=== PATIENT | female | born 1945 | race African-American/Black ===

== ENCOUNTER 2024-05-12 17:30 | Emergency (ER) | payer BC, MEDICAID ==
[~2024-05-12] VITALS: Ht 165.1 cm; Wt 63.5 kg
[2024-05-12 17:47] VITALS: BP 172/97; PULSE 90; RESP 16; TEMP 97.9; O2SAT 100
== END 2024-05-12 18:10 | disposition home or self-care (01) ==
LOC: ER 17:30
DX: I10 Essential (primary) hypertension (principal); E11.9 Type 2 diabetes mellitus without complications; Z00.00 Encounter for general adult medical examination without abnormal findings; Z90.710 Acquired absence of both cervix and uterus; Z98.890 Other specified postprocedural states
CPT/HCPCS: 99281

== ENCOUNTER 2024-12-07 16:06 | Emergency (ER) | payer MEDICARE, MEDICAID ==
[~2024-12-07] VITALS: Ht 167.6 cm; Wt 65.0 kg
[2024-12-07 16:09] VITALS: O2SAT 99
[2024-12-07] MEDS: IBUPROFEN 800MG TABLET PO ONE (17:30)
[2024-12-07] MEDS ORDERED: HYDRALAZINE HCL 50MG TABLET PO ONE (17:30)
[2024-12-07] MEDS: HYDRALAZINE HCL 25MG TABLET PO NR (18:30)
[2024-12-07] MEDS ORDERED: AMLO5TAB88 MT (20:04)
[2024-12-07] MEDS: HYDRALAZINE HCL 50MG TABLET PO ONE (20:43)
[2024-12-07 21:02] VITALS: BP 195/81; PULSE 63; RESP 20; TEMP 36.5; O2SAT 99
== END 2024-12-07 21:05 | disposition home or self-care (01) ==
LOC: ER 16:06
DX: I10 Essential (primary) hypertension (principal); E11.40 Type 2 diabetes mellitus with diabetic neuropathy, unspecified; Z90.710 Acquired absence of both cervix and uterus
CPT/HCPCS: 99283; 99285